=== PATIENT | female | born 1960 | race Caucasian/White ===

== ENCOUNTER 2020-04-26 10:21 | Emergency (ER) | payer OTHER, SELFPAY ==
[2020-04-26] VITALS (12 sets, daily range): BP systolic 95–137; BP diastolic 59–78; PULSE 53–82; RESP 12–23; TEMP 37.1; O2SAT 93–100; BMI 20.5
--- NOTE | 2020-04-26 10:45 | DI.RAD.S_ITS ---
PROCEDURE: XR CHEST 1V INDICATIONS: Chest pain TECHNIQUE: One view of the chest was acquired. COMPARISON: None. FINDINGS: Surgical changes and devices: None. Lungs and pleura: Lungs are clear. No pleural effusions or pneumothorax. Mediastinum: Mediastinal contours appear normal. Heart size is at the upper limits of normal. Bones and chest wall: No suspicious bony lesions. Overlying soft tissues appear unremarkable. IMPRESSION: No acute finding. Dictated by: Jignesh Rocha M.D. on 04/26/2020 at 10:08 Approved by: Jignesh Rocha M.D. on 04/26/2020 at 10:09
--- NOTE | 2020-04-26 10:53 | ED.CHESTPAIN ---
HPI - Chest Pain General Chief Complaint: Chest Pain Stated Complaint: sob, chest pain for several weeks Time Seen by Provider: 04/26/20 10:27 Source: patient and other (partner, Antwon) Mode of arrival: Ambulatory Limitations: no limitations History of Present Illness HPI narrative: This is a 59-year-old female who comes emergency department with about a month of chest discomfort which she describes as pressure and shortness of breath. She states sometimes she feels like she has to take a deep inhalation. She describes some radiation yesterday to her draw and neck. She denies any radiation to her back, shoulders her abdomen. She states she does have chronic grinding of her teeth and will have right-sided jaw pain but this was on both sides. She describes it more as a pressure although she had 1 episode of a sharp pain on the left inner breast region that was short-lived. Patient states there does not seem to be exacerbating factors or alleviating factors. She can have it exertion or rest. She has been quite stressed with her work and has been working 60-80 hours weekly. She denies any fevers, no chills. Patient has not had any cough, no hemoptysis or sputum production. Denies nausea, no vomiting, no diarrhea constipation. No urinary symptoms. No swelling in her extremities. Patient denies any medical issues, prior tonsil surgery. No tobacco, she has a glass of alcohol 2 to 3 times a week, no illicit. Patient's father had some sort of lung fibrosis but she does not know the details, possibly some cardiac history in her grandparents but no known heart attack, pulmonary emboli in parents. She states she is Ashkenazi Mandaen. Patient's primary care is Dr. Vargas at [facility]. She is accompanied by her long-term partner Antwon. Related Data Previous Rx's Medication Instructions Recorded cyclobenzaprine 5 mg PO Q6HP PRN #20 tab 05/03/16 Allergies Allergy/AdvReac Type Severity Reaction Status Date / Time No Known Drug Allergies Allergy Verified 04/26/20 10:43 Review of Systems Review of Systems ROS Unobtainable: All systems reviewed & are unremarkable except as noted in HPI and below Patient History Medical History Ashkenazi Mandaen ancestry Surgical History (Updated 04/26/20 @ 11:49 by Bianka Lynn DO) History of tonsillectomy Status post colonoscopy Social History Smoking Status: Unknown if ever smoked Smoking Status: Unknown if ever smoked alcohol intake frequency: holidays/special occasions only Substance Use Type: does not use Exam Narrative Exam Narrative: GENERAL: Alert and oriented x three, thin, well-appearing female in mild distress. HEENT: Head normocephalic, atraumatic, EOMI, pupils reactive, face symmetric, moist mucous membranes NECK: Supple, full range of motion CARDIOVASCULAR: Regular rate and rhythm without murmurs, rubs or gallops. RESPIRATORY: Breath sounds equal bilaterally, no wheezes rales or rhonchi. ABDOMEN: Soft, nontender. Normoactive bowel sounds all 4 quadrants. No guarding or rebound, rigidity, no mass : No CVA tenderness EXTREMITIES: Normal range of motion, no clubbing or edema. Neurovascularly intact NEUROLOGICAL: Cranial nerves II through XII grossly intact. Moving all extremities SKIN: Warm, dry, no petechiae, no rashes or lesions. Initial Vital Signs Initial Vital Signs: Vital Signs Temperature 98.8 F 04/26/20 10:22 Pulse Rate 81 04/26/20 10:22 Respiratory Rate 16 04/26/20 10:22 Blood Pressure 132/70 04/26/20 10:22 Pulse Oximetry 99 04/26/20 10:22 Scores HEART Score Heart Score history: Slightly Suspicious Heart Score EKG: Non-Specific repolarization disturbance Heart Score Age: 45-64 years old Heart Score risk factors: No known risk factors PERC Score Age greater than or equal to 50 years: Yes Heart rate greater than or equal to 100 bpm: No Room Air O2 Sat less than 95%: No Unilateral leg swelling: No Recent trauma or surgery: No Hemoptysis: No Prior PE or DVT: No Hormone Use: No Total PERC Score: 1 Course Orders Ordered: ED Orders 04/26/20 10:40 Complete Blood Count AUTO DIFF Stat Comprehensive Metabolic Panel Stat D Dimer Stat Lipase Stat Partial Thromboplastin Time Stat Prothrombin Time INR Stat Thyroid Stimulating Hormone Stat Troponin & CK Cardiac Panel Stat 04/26/20 10:45 XR chest 1V Stat EKG-12 Lead Stat 04/26/20 11:56 COVID19 Stat Discontinued Medications Aspirin (Aspirin 81 Mg Chew Tab) 324 mg PO NOW ONE Stop: 04/26/20 11:40 Last Admin: 04/26/20 11:48 Dose: 324 mg Documented by: JESSIE Nitroglycerin (Nitroglycerin 0.4 Mg Sl Tab) 0.4 mg SL NOW ONE Stop: 04/26/20 11:40 Last Admin: 04/26/20 11:48 Dose: 0.4 mg Documented by: JESSIE Vital Signs Vital signs: Vital Signs - 8 hr 04/26/20 10:22 04/26/20 10:32 04/26/20 10:33 Temperature 98.8 F Pulse Rate 81 79 82 Respiratory Rate 16 Blood Pressure 132/70 132/70 Pulse Oximetry 99 97 100 04/26/20 11:00 04/26/20 11:30 04/26/20 11:31 Temperature Pulse Rate 76 67 Respiratory Rate 12 20 21 Blood Pressure 115/70 137/78 Pulse Oximetry 100 100 100 04/26/20 12:00 04/26/20 12:01 04/26/20 12:15 Temperature Pulse Rate 73 64 58 L Respiratory Rate 17 23 Blood Pressure 100/59 L 102/68 Pulse Oximetry 93 98 100 04/26/20 12:30 04/26/20 12:45 04/26/20 13:12 Temperature Pulse Rate 55 L 57 L 53 L Respiratory Rate 14 19 Blood Pressure 95/61 97/62 100/77 Pulse Oximetry 98 99 MDM - Chest Pain Lab Data Attestation: I reviewed the patient's lab results. Result diagrams: 04/26/20 10:40 04/26/20 10:40 Labs: Lab Results 04/26/20 04/26/20 04/26/20 Range/Units 10:40 10:40 10:40 WBC 6.8 (4.5-11.0) X10^3/uL RBC 4.91 (4.0-5.2) X10^6/uL Hgb 14.5 (12.0-16.0) g/dL Hct 43.2 (36-46) % MCV 88.1 (80-100) fL MCH 29.5 (26-34) PG MCHC 33.4 (30-36) % RDW 12.3 (11.6-14.8) % Plt Count 232 (150-400) X10^3/uL Neut % (Auto) 67.6 (50-75) % Lymph % (Auto) 23.5 L (25-40) % [place] % (Auto) 6.6 (3-14) % Eos % (Auto) 1.0 L (2-4) % Baso % (Auto) 1.3 (0-2) % Neut # (Auto) 4600 (7225-4809) /uL Lymph # (Auto) 1600 (5711-6080) /uL [place] # (Auto) 400 (0-900) /uL Eos # (Auto) 100 (0-450) /uL Baso # (Auto) 100 (0-100) /uL PT 11.5 (10.1-12.7) SECONDS INR 1.0 (0.9-1.3) APTT 29 (26.4-36.2) SECONDS D-Dimer (<230) ng/mL Sodium 138 (137-145) mmol/L Potassium 3.7 (3.4-5.1) mmol/L Chloride 102 (98-107) mmol/L Carbon Dioxide 33 H (22-32) mmol/L BUN 15 (7-17) mg/dL Creatinine 0.73 (0.52-1.04) mg/dL Estimated GFR > 60.0 (>60) mL/min BUN/Creatinine Ratio 20.5 (6-22) Glucose 96 (70-100) mg/dL Calcium 9.4 (8.4-10.2) mg/dL Total Bilirubin 1.1 (0.2-1.3) mg/dL AST 26 (14-36) IU/L ALT 18 (<35) IU/L Alkaline Phosphatase 47 (38-126) U/L Total Creatine Kinase 52 (30-135) U/L CK-MB (CK-2) TNP CK-MB (CK-2) Rel Index TNP Troponin I < 0.012 (0.01-0.034) ng/mL Total Protein 7.6 (6.3-8.2) g/dL Albumin 4.7 (3.5-5.0) g/dL Globulin 2.9 (1.7-4.1) g/dL Albumin/Globulin Ratio 1.6 (1.0-2.8) Lipase 92 (23-300) U/L TSH (0.47-4.68) uIU/mL SARS-CoV-2 (PCR) (Negative) 04/26/20 04/26/20 04/26/20 Range/Units 10:40 10:40 11:56 WBC (4.5-11.0) X10^3/uL RBC (4.0-5.2) X10^6/uL Hgb (12.0-16.0) g/dL Hct (36-46) % MCV (80-100) fL MCH (26-34) PG MCHC (30-36) % RDW (11.6-14.8) % Plt Count (150-400) X10^3/uL Neut % (Auto) (50-75) % Lymph % (Auto) (25-40) % [place] % (Auto) (3-14) % Eos % (Auto) (2-4) % Baso % (Auto) (0-2) % Neut # (Auto) (5194-2315) /uL Lymph # (Auto) (4126-3705) /uL [place] # (Auto) (0-900) /uL Eos # (Auto) (0-450) /uL Baso # (Auto) (0-100) /uL PT (10.1-12.7) SECONDS INR (0.9-1.3) APTT (26.4-36.2) SECONDS D-Dimer < 200 (<230) ng/mL Sodium (137-145) mmol/L Potassium (3.4-5.1) mmol/L Chloride (98-107) mmol/L Carbon Dioxide (22-32) mmol/L BUN (7-17) mg/dL Creatinine (0.52-1.04) mg/dL Estimated GFR (>60) mL/min BUN/Creatinine Ratio (6-22) Glucose (70-100) mg/dL Calcium (8.4-10.2) mg/dL Total Bilirubin (0.2-1.3) mg/dL AST (14-36) IU/L ALT (<35) IU/L Alkaline Phosphatase (38-126) U/L Total Creatine Kinase (30-135) U/L CK-MB (CK-2) CK-MB (CK-2) Rel Index Troponin I (0.01-0.034) ng/mL Total Protein (6.3-8.2) g/dL Albumin (3.5-5.0) g/dL Globulin (1.7-4.1) g/dL Albumin/Globulin Ratio (1.0-2.8) Lipase (23-300) U/L TSH 0.931 (0.47-4.68) uIU/mL SARS-CoV-2 (PCR) Negative (Negative) Urine Dip Bedside Urine Glucose Negative Bedside Urine Bilirubin - Negative Bedside Urine Ketone - Negative Urine Specific [place] 1.015 Bedside Urine Occult Blood - Negative Bedside Urine pH 7 Bedside Urine Protein - Negative Bedside Urine Urobilinogen - Negative Bedside Urine Nitrite - Negative Bedside Urine Leukocytes - Negative Esterase Imaging Data Chest x-ray: Radiologist's Impression: [address] [id number] ReportSigned Patient: Marcie Nava#: [id number]: 1960Acct:[id number]/Sex: 59 / FDate of Service: 04/26/20Loc: EDAccession Number: [id number] Procedure: XR chest 1V Ordering Provider: Bianka Lynn D.O. PROCEDURE: XR CHEST 1V INDICATIONS: Chest pain TECHNIQUE: One view of the chest was acquired. COMPARISON: None. FINDINGS: Surgical changes and devices: None. Lungs and pleura: Lungs are clear. No pleural effusions or pneumothorax. Mediastinum: Mediastinal contours appear normal. Heart size is at the upper limits of normal. Bones and chest wall: No suspicious bony lesions. Overlying soft tissues appear unremarkable. IMPRESSION: No acute finding. Dictated by: Jignesh Rocha M.D. on 04/26/2020 at 10:08 Approved by: Jignesh Rocha M.D. on 04/26/2020 at 10:09 ECG Data Attestation: I personally reviewed and interpreted this ECG as follows: Interpretation: NSR with rate of 64, NC 146, QRS of 74 and QTC 416. Inverted T-wave in lead 3 but no additional noted. No elevation appreciated. No priors for comparison. MDM Narrative Medical decision making narrative: This is a 59-year-old female who comes emergency department complaint of about a month's worth of shortness of breath and chest pain/pressure. She has had significant stress at work. She has Ashkenazi Mandaen history with a father who had some possibility pulmonary fibrosis but no other high risk cardiac factors. Patient labs does not show a clear cause for her symptoms today, D-dimer is negative, troponins negative with constant chest pain/discomfort that is been present since yesterday and was still present upon awakening at 3:00 a.m. and has never resolved with no acute EKG changes appreciated. COVID swab is negative. Chest x-ray is clear. Discussed with patient plan for her to follow up with primary would be appropriate for some further evaluation if she continues to have symptoms. Return precautions were discussed. Discharge Plan Departure Patient Disposition: Home Clinical Impression: Atypical chest pain Instructions: DI for Atypical Chest Pain Activity Restrictions/Additional Instructions: Follow up with your physician for recheck and further evaluation. Your labs, imaging and EKG today do not show an exact cause of your symptoms. Return for recheck if you are having worsening chest pain, shortness of breath, for having any syncope or passing out, persistent vomiting, sweating or diaphoresis, new swelling of your extremities, black or bloody stools or other new or concerning symptoms. Prescriptions: No Action cyclobenzaprine 5 MG tablet 5 mg PO Q6HP PRNQty: 20 RF: 1
[2020-04-26 10:59] LABS: Prothrombin Time 11.5 SECONDS (10.1-12.7)
[2020-04-26 11:00] LABS: Add Manual Diff / Slide Review NO; Basophils Absolute Auto 100 /uL (0-100); Basophils Percent Auto 1.3 % (0-2); Eosinophils Absolute Auto 100 /uL (0-450); Hematocrit 43.2 % (36-46); Hemoglobin 14.5 g/dL (12.0-16.0); Lymphocytes Absolute Auto 1600 /uL (1100-4500); Lymphocytes Percent Auto 23.5 % (25-40); Mean Corpuscular HGB Conc 33.4 % (30-36); Mean Corpuscular Hemoglobin 29.5 PG (26-34); Mean Corpuscular Volume 88.1 fL (80-100); Monocytes Absolute Auto 400 /uL (0-900); Monocytes Percent Auto 6.6 % (3-14); Neutrophils Absolute Auto 4600 /uL (1500-7000); Neutrophils Percent Auto 67.6 % (50-75); Platelet Count 232 X10^3/uL (150-400); Red Blood Cell Count 4.91 X10^6/uL (4.0-5.2); Red Cell Distribution Width 12.3 % (11.6-14.8); White Blood Cell Count 6.8 X10^3/uL (4.5-11.0)
[2020-04-26 11:02] LABS: PTT Partial Thromboplastin Tim 29 SECONDS (26.4-36.2)
[2020-04-26 11:03] LABS: Alanine Aminotransferase 18 IU/L (<35); Albumin 4.7 g/dL (3.5-5.0); Albumin Globulin Ratio 1.6 (1.0-2.8); Alkaline Phosphatase 47 U/L (38-126); Aspartate Aminotransferase 26 IU/L (14-36); BUN Creatinine Ratio 20.5 (6-22); Bilirubin Total 1.1 mg/dL (0.2-1.3); Blood Urea Nitrogen 15 mg/dL (7-17); Calcium 9.4 mg/dL (8.4-10.2); Carbon Dioxide 33 mmol/L (22-32); Chloride 102 mmol/L (98-107); Creatine Kinase 52 U/L (30-135); Estimated Glomerular Filt Rate > 60.0 mL/min (>60); Globulin 2.9 g/dL (1.7-4.1); Glucose 96 mg/dL (70-100); HEMOLYSIS < 15 (0-50); Lipase 92 U/L (23-300); Potassium 3.7 mmol/L (3.4-5.1); Sodium 138 mmol/L (137-145); Total Protein 7.6 g/dL (6.3-8.2)
[2020-04-26 11:14] LABS: Troponin I < 0.012 ng/mL (0.01-0.034)
--- NOTE | 2020-04-26 11:21 | CM.MNRNOTE ---
Pt states that her job is very stressful at this time and for the past 3 weeks she has had chest tightness and SOB which she normally gets with stress. However last night she started to experience chest pain substernal radiating to the R chest and up into the R jaw (hx of TMJ) which concerned her enough to come be evaluated. Pt does not have a hx of blood clots, cardiac or resp problems.
[2020-04-26] MEDS: NITROGLYCERIN 0.4 MG SL TAB SL (11:48)
[2020-04-26] MEDS: ASPIRIN 81 MG CHEW TAB 324 MG PO (11:48)
[2020-04-26 12:22] LABS: COVID19 -Nasal RAPID Negative (Negative)
[2020-04-26 12:22] LABS: D Dimer < 200 ng/mL (<230)
[2020-04-26 12:28] LABS: Thyroid Stimulating Hormone 0.931 uIU/mL (0.47-4.68)
== END 2020-04-26 13:13 | disposition home or self-care (01) ==
PROVIDERS: Emergency Provider Emergency Medicine
DX: R07.89 Other chest pain (principal); R06.02 Shortness of breath; Z20.822 Contact with and (suspected) exposure to COVID-19
CPT/HCPCS: 36415; 71045; 80053; 81003; 82550; 83690; 84443; 84484; 85025; 85379; 85610; 85730; 87635; 93005; 93010; 99283; 99284; C9803